=== PATIENT | female | born 1975 | race Caucasian/White ===

== ENCOUNTER → 2018-03-06 16:46 | Outpatient (CLI) | payer BC | END | disposition home or self-care (01) | LOC: D.MAMMO 14:45 | DX: Z12.31 Encounter for screening mammogram for malignant neoplasm of breast (principal) ==

== ENCOUNTER → 2018-04-14 19:38 | Outpatient (CLI) | payer BC | END | disposition home or self-care (01) | LOC: D.MAMMO 03-26 14:00 | DX: R92.8 Other abnormal and inconclusive findings on diagnostic imaging of breast (principal) ==

== ENCOUNTER 2019-07-03 10:18 | Inpatient (IN) | payer MEDICAID ==
[~2019-07-03] VITALS: Ht 162.6 cm; Wt 61.2 kg
[2019-07-03 11:01] LABS: BASOPHILS 0.1 % (0-2); EOSINOPHILS 0.1 % (0-7); HEMATOCRIT 34.2 % (36.0-48.0); HEMOGLOBIN 11.8 g/dL (12-16); IMMATURE GRANULOCYTES 2.1 % (0-5); MCH 31.1 pg (26.0-34.0); MCHC 34.5 g/dL (31.0-37.0); MEAN PLATELET VOLUME 10.6 fL (7.4-10.4); MONOCYTES 10.1 % (2-11); NEUTROPHILS 83.6 % (40-80); PLATELET COUNT 145 10x3/uL (130-400); RDW 13.5 % (11.5-14.5); WBC 12.6 10x3/uL (4.8-10.8)
[2019-07-03 11:04] LABS: BILIRUBIN NEGATIVE (NEGATIVE); GLUCOSE NEGATIVE (NEGATIVE); KETONE NEGATIVE (NEGATIVE); NITRITE NEGATIVE (NEGATIVE); UROBILINOGEN NORMAL (NORMAL)
[2019-07-03 11:10] LABS: ANION GAP 21.9 mmol/L (8-16); CALCIUM 7.6 mg/dL (8.5-10.1); CARBON DIOXIDE 17.7 mmol/L (21.0-32.0); CREATININE - SERUM 4.6 mg/dL (0.6-1.3); POTASSIUM - SERUM 3.6 mmol/L (3.5-5.1)
[2019-07-03 11:11] LABS: BACTERIA MANY /hpf (NEGATIVE); EPITHELIAL CELLS 0-5 /hpf (0-5); RED CELLS - URINE 0-5 /hpf (0-5); WHITE CELLS - URINE >50 /hpf (NEGATIVE)
[2019-07-03 11:15] LABS: ALBUMIN 2.5 g/dL (3.4-5.0); BILIRUBIN - TOTAL 0.43 mg/dL (0.2-1.3); PROTEIN - SERUM 7.4 g/dL (6.4-8.2)
[2019-07-03 12:09] VITALS: BP 125/66
[2019-07-03 12:11] LABS: C-REACTIVE PROTEIN 48.7 mg/dL (0.0-0.9)
[2019-07-03 13:40] LABS: UDS - AMPHET NEGATIVE QUAL (NEGATIVE); UDS - BARB NEGATIVE QUAL (NEGATIVE); UDS - BENZO NEGATIVE QUAL (NEGATIVE); UDS - COCAINE NEGATIVE QUAL (NEGATIVE); UDS - OPIATE NEGATIVE QUAL (NEGATIVE); UDS - PCP NEGATIVE QUAL (NEGATIVE); UDS - THC NEGATIVE QUAL (NEGATIVE)
--- NOTE | 2019-07-03 15:00 | NUR ---
PT ARRIVED TO ROOM VIA WHEELCHAIR, DROPLETE PRECAUTIONS IN PLACE. RECIEVED WATER AND BROTH PER REQUEST. DENIES NEEDS OR PAIN AT THIS TIME. CALL LIGHT WITHIN REQACH. PT ORIENTED TO ROOM. WILL CONTINUE TO MONITOR.
[2019-07-03 17:30] VITALS: BP 112/78; BMI 23.2
--- NOTE | 2019-07-03 19:59 | NUR ---
RECIEVED UP IN BED WITH EYES OPEN AND TV ON. ALERT AND ORIENTED X4. UP AD DONALD. IV TO RT AC WITH NS AT 125CC/HR. REMAINS IN DROPLET ISOLATION. AWAITING COVID TEST RESULTS. DENIES ANY NEEDS AT THIS TIME.
[2019-07-03 22:36] VITALS: BP 98/60
--- NOTE | 2019-07-04 05:38 | NUR ---
WHEN DRWING BLOOD FOR AM LABS NOTICED SHE HAD BANDANA LAID ACROSS HER WRIST AREA. WHEN SHE REMOVED IT I NOTICED 2 AREAS THAT LOOKED LIKE ABRASIONS THAT HAD SMALL AMOUNTS OF BLOOD COMMING FROME THEM.
[2019-07-04 05:48] LABS: BASOPHILS 0.1 % (0-2); EOSINOPHILS 0.2 % (0-7); HEMATOCRIT 27.5 % (36.0-48.0); IMMATURE GRANULOCYTES 1.8 % (0-5); LYMPHOCYTES 9.2 % (15-50); MCHC 33.1 g/dL (31.0-37.0); MCV 90.8 fL (80.0-100.0); MEAN PLATELET VOLUME 10.3 fL (7.4-10.4); MONOCYTES 16.3 % (2-11); NEUTROPHILS 72.4 % (40-80); PLATELET COUNT 163 10x3/uL (130-400)
[2019-07-04 05:49] LABS: HEMOGLOBIN 9.1 g/dL (12-16); RBC 3.03 10x6/uL (4.00-5.40)
[2019-07-04 06:11] LABS: CALCIUM 7.1 mg/dL (8.5-10.1); CARBON DIOXIDE 17.2 mmol/L (21.0-32.0); CREATININE - SERUM 3.6 mg/dL (0.6-1.3); POTASSIUM - SERUM 3.2 mmol/L (3.5-5.1)
--- NOTE | 2019-07-04 08:00 | NUR ---
PT SITTING UP IN BED, RR EVEN AND UNLABORED. STATES PAIN IN ABDOMEN 09/16. MORPHINE RECEIVED PER ORDER. HAT PLACED IN TOILET TO RECORD ACCURATE OUTPUT. ASSESSMENT COMPLETE. ABDOMEN DISTENDED AND TENDER TO LIGHT PALPATION. CALL LIGHT WITHIN REACH. BED IN LOWEST POSITION. WILL CONTINUE TO MONITOR.
[2019-07-04 08:17] VITALS: BP 109/72
--- NOTE | 2019-07-04 14:46 | NUR ---
I have reviewed this patient and I concur with the Shift Assessment completed by the Licensed Practical Nurse today this shift.
[2019-07-04 18:12] VITALS: BP 122/78
--- NOTE | 2019-07-04 18:17 | NUR ---
PULSE 122; ROWENA 102.8. CONTACTED FERN GATHERER TO ASK ABOUT CALLING CODE SEPSIS. SHE THEN CONTACTED ICU RAPID NURSE AND THEY BOTH AGREED TO INCREASE FLUIDS TO 150MLS/HR. PT IS ALREADY ON LEVAQUIN SO BLOOD CULTURES WOULD BE INNACURATE. COLD WASH CLOTH ON PT FOREHEAD, TEMP IN ROOM TURNED DOWN, BLANKET REMOVED FROM PT. TYLENOL RECEIVED PER ORDER. WILL PUT HEART MONITOR ON PT AND CTM.
--- NOTE | 2019-07-04 19:51 | NUR ---
RECEIVED SITTING UP ON BED FACING HEAD BOARD. ALERT AND ORIENTED X4. UP AD DONALD TO B/R. DENIES ANY BM AT THIS TIME. EDUCATED ON NEED TO DRINK WATER AND TAKE HER TIME WHEN SHE FEELS THE NEED TO DEFICATE. VERBAL UNDERSTANDING GIVEN. IV TO RT AC WITH NS AT 150CC/HR. TELEMETRY IN PLACE. REPORTED MAG CITRATE GIVEN TODAY BY OFF GOING. DENIES ANY NEEDS.
[2019-07-04 20:53] VITALS: BP 103/67
--- NOTE | 2019-07-05 00:23 | NUR ---
REQUESTED MORPHINE FOR ABDOMINAL PAIN. SAID SHE HAS HAD 3 BM'S AND FEELS BETTER.
[2019-07-05 06:10] VITALS: BP 148/88
[2019-07-05 06:25] LABS: BASOPHILS 0.2 % (0-2); EOSINOPHILS 0.3 % (0-7); IMMATURE GRANULOCYTES 5.2 % (0-5); LYMPHOCYTES 10.2 % (15-50); MCH 30.6 pg (26.0-34.0); MCHC 33.3 g/dL (31.0-37.0); MCV 91.7 fL (80.0-100.0); MEAN PLATELET VOLUME 9.8 fL (7.4-10.4); MONOCYTES 14.4 % (2-11); NEUTROPHILS 69.7 % (40-80); RDW 14.8 % (11.5-14.5)
[2019-07-05 06:26] LABS: PLATELET COUNT 206 10x3/uL (130-400)
[2019-07-05 06:34] LABS: ANION GAP 18.4 mmol/L (8-16); CALCIUM 8.1 mg/dL (8.5-10.1); CARBON DIOXIDE 16.4 mmol/L (21.0-32.0); CREATININE - SERUM 2.3 mg/dL (0.6-1.3); POTASSIUM - SERUM 4.8 mmol/L (3.5-5.1)
[2019-07-05 08:00] VITALS: BP 116/88
--- NOTE | 2019-07-05 08:17 | NUR ---
PT RECEIVED AWAKE AND ALERT. BREAKFAST TAKEN TO ROOM. STATES 5-6 LOOSE BMS LAST NIGHT AND BOTTOM IS RAW. ASKING FOR POWDER. TOLERATING LIQUID DIET, TRYING TO TAKE IN ORAL TO REPLACE LOST FLUIDS. SLIGHT TEMP THIS MORNING, 99.0 AT PRESENT POST TYLENOL DOSE.
--- NOTE | 2019-07-05 12:48 | NUR ---
I CALLED THE [facility] FOR COVID-19 TEST RESULTS PER LA NENA. THEY ARE SUPPOSE TO FAX RESULTS TO US.
--- NOTE | 2019-07-05 12:55 | NUR ---
RESULTS FROM [facility] FAXED TO [facility] AND SCANNED INTO CHART. I TOLD MASOUD HERMAN CHARGE OF THE RESULTS.
[2019-07-05 13:43] LABS: CKMB 0.7 U/L (0.0-3.6); CREATINE KINASE 19 UL (21-215)
[2019-07-05 13:47] LABS: TROPONIN-I < 0.017 ng/mL (0.000-0.060)
[2019-07-05 13:57] LABS: C-REACTIVE PROTEIN 24.4 mg/dL (0.0-0.9)
[2019-07-05 14:21] LABS: ERYTHROCYTE SEDIMENTATION RATE 118 mm/hr (0-20)
[2019-07-05 14:22] VITALS: BP 123/73
--- NOTE | 2019-07-05 16:17 | NUR ---
SPOKE WITH DR. MCGRATH AND HE STATES TO ORDER PT A NICOTINE PATCH.
--- NOTE | 2019-07-05 18:39 | NUR ---
PAGEDes DESAI VOISE TO NOTIFY HIM OF CONSULT.
--- NOTE | 2019-07-05 19:30 | NUR ---
PT IN BED, AAO X 3, RESP EVEN AND UNLABORED, NO DISTRESS NOTED, CL IN REACH, SR UP X 2.
[2019-07-05 19:32] LABS: CKMB 0.6 U/L (0.0-3.6); CREATINE KINASE 22 UL (21-215); TROPONIN-I < 0.017 ng/mL (0.000-0.060)
[2019-07-05 20:00] VITALS: BP 137/77
[2019-07-06 01:12] VITALS: BP 150/88
[2019-07-06 01:37] LABS: CKMB 0.2 U/L (0.0-3.6); CREATINE KINASE 24 UL (21-215); TROPONIN-I < 0.017 ng/mL (0.000-0.060)
--- NOTE | 2019-07-06 04:00 | NUR ---
I have reviewed this patient and I concur with the Shift Assessment completed by the Licensed Practical Nurse today this shift.
[2019-07-06 04:05] VITALS: BP 130/76
[2019-07-06 06:13] LABS: BASOPHILS 0.2 % (0-2); EOSINOPHILS 0.8 % (0-7); HEMATOCRIT 26.4 % (36.0-48.0); IMMATURE GRANULOCYTES 6.3 % (0-5); LYMPHOCYTES 10.9 % (15-50); MCH 30.3 pg (26.0-34.0); MCHC 34.1 g/dL (31.0-37.0); MEAN PLATELET VOLUME 9.3 fL (7.4-10.4); MONOCYTES 13.6 % (2-11); NEUTROPHILS 68.2 % (40-80); PLATELET COUNT 194 10x3/uL (130-400); RBC 2.97 10x6/uL (4.00-5.40); RDW 14.9 % (11.5-14.5); WBC 13.2 10x3/uL (4.8-10.8)
[2019-07-06 06:16] LABS: ANION GAP 16.6 mmol/L (8-16); CALCIUM 7.6 mg/dL (8.5-10.1); CARBON DIOXIDE 13.7 mmol/L (21.0-32.0); CREATININE - SERUM 1.4 mg/dL (0.6-1.3); POTASSIUM - SERUM 3.3 mmol/L (3.5-5.1)
[2019-07-06 06:35] LABS: MCV 88.9 fL (80.0-100.0)
--- NOTE | 2019-07-06 07:00 | NUR ---
RECEIVED PT FROM SWITCH FOREMAN.
[2019-07-06 07:53] VITALS: BP 131/82
--- NOTE | 2019-07-06 08:57 | NUR ---
ADMINISTERED PRN MORPHINE AND ZOFRAN AT THIS TIME. TOLERATED WELL. PT IS RESTING COMFORTABLY IN BED. DENIES ANY NEEDS AT THIS TIME. WILL CONTINUE TO MONITOR.
--- NOTE | 2019-07-06 11:25 | NUR ---
I have reviewed this patient and I concur with the Shift Assessment completed by the Licensed Practical Nurse today this shift.
[2019-07-06 11:28] VITALS: BP 133/84
[2019-07-06 13:01] VITALS: Ht 162.6 cm; Wt 61.2 kg
--- NOTE | 2019-07-06 13:36 | NUR ---
HUNG IV ANTIBIOTICS, TOLERATING WELL. ADMINISTERED PRN TYLENOL FOR PAIN LEVEL OF 6/10. PT IS RESTING COMFORTABLY IN BED. INQUIRED ABOUT POSSIBLE DC, NO NOTE INDICATING DISCHARGE TODAY. PT IS GOING TO SPEAK WIHT PULMONOLOGY WHEN THEY ROUND. DENIES ANY OTHER NEEDS AT THIS TIME. WILL CONTINUE TO MONITOR.
--- NOTE | 2019-07-06 14:51 | NUR ---
HUNG IV ANTIBIOTICS AND NEW NS @ 125. PT IS RESTING IN BED, DENIES ANY NEEDS AT THIS TIME. BED IN LOWEST POSITION, BED RAILS X2, CALL LIGHT WITHIN REACH. WILL CONTINUE TO MONITOR.
--- NOTE | 2019-07-06 17:11 | MORECARE ---
CASE MANAGEMENT DISCHARGE SUMMARY PATIENT: LALITO WHITLOCK UNIT: [id number] ADM DATE: 07/03/19 AGE: 44 : [birth year] SEX: F ROOM/BED: D.2137 AUTHOR: JENNY HELTON PHYSICIAN: REFERRING PHYSICIAN: LYNETTE BILLINGSLEY MD DATE OF SERVICE: 07/06/19 Discharge Plan Patient Name: LALITO WHITLOCK Facility: [facility]:[place] : 1975 Planned Disposition: Home Anticipated Discharge Date: Discharge Date: Expected LOS: Initial Reviewer: [email or web address] Initial Review Date: 07/06/2019 Generated: 07/06/19 6:11 pm DCPIA - Discharge Planning Initial Assessment Updated by [email or web address]: Nila Gregg on 07/06/19 5:08 pm * Is the patient Alert and Oriented? Yes * How many steps to enter\exit or inside your home? * PCP None * Pharmacy [facility] * Preadmission Environment Home with Family * ADLs Independent * Equipment None * List name and contact numbers for known caregivers / representatives who currently or will assist patient after discharge: Jaycob Wellington, ex, * Verbal permission to speak to the caregivers and representatives has been obtained from the patient. No * Community resources currently utilized None * Additional services required to return to the preadmission environment? No * Can the patient safely return to the preadmission environment? Yes * Has this patient been hospitalized within the prior 30 days at any hospital? No Patient Name: LALITO WHITLOCK Page 76828 at 1711 All edits/amendments must be made on the electronic document DICTATION DATE: 07/06/191710 TRUCK DESPATCHER: KATIANA 07/06/191710 RPT#: [id number] DC DATE: STATUS: ADM IN [facility] [address] [place] [address] END OF REPORT
--- NOTE | 2019-07-06 17:19 | MORECARE ---
CASE MANAGEMENT DISCHARGE SUMMARY PATIENT: LALITO WHITLOCK UNIT: [id number] ADM DATE: 07/03/19 AGE: 44 : 73 SEX: F ROOM/BED: D.2134 AUTHOR: DANIE,DOC PHYSICIAN: REFERRING PHYSICIAN: LYNETTE BILLINGSLEY MD DATE OF SERVICE: 07/06/19 Discharge Plan Patient Name: LALITO WHITLOCK Facility: [facility]:[place] : 1975 Planned Disposition: Home Anticipated Discharge Date: Discharge Date: Expected LOS: Initial Reviewer: [email or web address] Initial Review Date: 07/06/2019 Generated: 07/06/19 6:18 pm Comments DCP- Discharge Planning Updated by [email or web address]: Nila Gregg on 07/06/19 4:[address] Patient Name: LALITO WHITLOCK Admission Status: ER Accout number: [id number] Admission Date: 07-03-2019 : 1975 Admission Diagnosis:URINARY TRACT INFECTION, SITE NOT SPECIFIED Attending: LYNETTE BILLINGSLEY Current LOS: 3 Anticipated DC Date: Planned Disposition: Home Primary Insurance: MEDICAID [place] Discharge Planning Comments: CM met with patient about discharge planning / needs. Patent states she lives at home with her 15 yo son and 16 yo daughter. States she feels home environment is safe. States her ex, Jaycob Wellington, will drive her home upon hospital discharge. Denies need for home health or other community resource needs at this time. CM will continue to follow and assist as needed with discharge planning / needs. Core Composer Feeder: Nila Gregg DCPIA - Discharge Planning Initial Assessment Updated by [email or web address]: Nila Gregg on 07/06/19 5:08 pm * Is the patient Alert and Oriented? Yes * How many steps to enter\exit or inside your home? * PCP None * Pharmacy [facility] on [address] * Preadmission Environment Home with Family * ADLs Independent * Equipment None * List name and contact numbers for known caregivers / representatives who currently or will assist patient after discharge: Jaycob Wellington, ex, * Verbal permission to speak to the caregivers and representatives has been obtained from the patient. No * Community resources currently utilized None * Additional services required to return to the preadmission environment? No * Can the patient safely return to the preadmission environment? Yes * Has this patient been hospitalized within the prior 30 days at any hospital? No Last DP export: 07/06/19 4:11 p Patient Name: LALITO WHITLOCK Page 55180 at 1715 All edits/amendments must be made on the electronic document DICTATION DATE: 07/06/191717 VEHICLE CHECK IN CLERK: KATIANA 07/06/191717 RPT#: [id number] DC DATE: STATUS: ADM IN [facility] [address] [place] [address] END OF REPORT
--- NOTE | 2019-07-06 17:58 | NUR ---
PT IN BED, RESTLESS. PT IS UPSET SHE IS NOT BEING DISCHARGED TODAY. REQUESTS AT LEAST SOME MEDICATION FOR ANXIETY. PAGED NEREIDA LLOYD. WILL CONTINUE TO MONITOR.
--- NOTE | 2019-07-06 19:08 | NUR ---
PT IS ALERT IN BED LOW AND LOCKED AND CALL LIGHT IS IN REACH PT REQUESTING MED FOR ANXIETY Lesia VERMA
[2019-07-06 22:16] VITALS: BP 140/78
[2019-07-07 05:29] VITALS: BP 137/80
[2019-07-07 05:52] LABS: HEMATOCRIT 27.2 % (36.0-48.0); HEMOGLOBIN 9.1 g/dL (12-16); MCH 29.9 pg (26.0-34.0); MCHC 33.5 g/dL (31.0-37.0); MCV 89.5 fL (80.0-100.0); MEAN PLATELET VOLUME 9.8 fL (7.4-10.4); RBC 3.04 10x6/uL (4.00-5.40); WBC 14.5 10x3/uL (4.8-10.8)
[2019-07-07 06:32] LABS: ANION GAP 16.3 mmol/L (8-16); CALCIUM 7.7 mg/dL (8.5-10.1); MAGNESIUM - SERUM 1.3 mg/dL (1.8-2.4); PHOSPHOROUS 3.3 mg/dL (2.5-4.9); POTASSIUM - SERUM 3.3 mmol/L (3.5-5.1)
[2019-07-07 06:33] LABS: PLATELET COUNT 267 10x3/uL (130-400)
[2019-07-07 06:52] LABS: EOSINOPHILS 1 % (0-7); LYMPHOCYTES 10 % (15-50); MONOCYTES 4 % (2-11); NEUTROPHILS 85 % (40-80); PLATELET ESTIMATE NORMAL; TEAR DROP CELLS OCC
--- NOTE | 2019-07-07 07:15 | NUR ---
AM ROUNDS COMPLETED. BEDSIDE SHIFT REPORT DONE. INTRODUCED MYSELF TO PT PRIMARY RN FOR TODAYS SHIFT. PT IS A&O SITTING UP IN BED RESTING QUIETLY. SHIFT ASSESSMENT COMPLETED AND PT IS DOING MUCH BETTER AND REQUESTING TO PLEASE BE DISCHARGED TODAY. WILL REVIEW CHART AND ORDERS AND CPOC.
--- NOTE | 2019-07-07 08:34 | NUR ---
PT IN TEARS BEGGING TO BE DISCHARGED. REVIEWED PROGRESS NOTES AND IT APPEARS THE PLAN ANYWAYS. HOWEVER PT DID HAVE LOW POTASSIUM AND LOW MAG LEVELS THIS AM. I DID TREAT PER ELECTROLYTE PROTOCOL. WILL PAGE PRIMARY AND SEE ABOUT DISCHARGE PLANNING AND PT IS JUST VERY EMOTIONAL AND NEEDS TO GET HOME TO HER YOUNG CHILDREN. NO IMMEDIATE NEEDS AT THIS TIME. CL IN REACH, BED IN LOWEST, SIDE RAILS X2. WILL CPOC.
[2019-07-07 08:40] VITALS: BP 160/97
--- NOTE | 2019-07-07 09:09 | NUR ---
PTS R.AC PIV INFILTRATED. D/C WITH CATH TIP FULLY INTACT. NEW 22 GUAGE INSERTED TO R.FA X1 STICK. MAG INFUSING. WILL CPOC.
[2019-07-07 11:29] VITALS: BP 161/93
[2019-07-07] MEDS ORDERED: Nicoderm [PBKC] TRANSDERM (12:02)
[2019-07-07] MEDS ORDERED: TESSALON PERLE100 MG PO (12:02)
[2019-07-07] MEDS ORDERED: LEVOFLOXACIN500 MG PO (12:02)
[2019-07-07] MEDS ORDERED: MUCINEX600 MG PO (12:02)
[2019-07-07] MEDS ORDERED: PROTONIX40 MG PO (12:02)
[2019-07-07] MEDS ORDERED: FLAGYL500 MG PO (12:03)
--- NOTE | 2019-07-07 13:47 | NUR ---
D/C PTS R.FA PIV WITH CATHETER TIP FULLY INTACT. DISCHARGE TEACHING PROVIDED AND PAPERS SIGNED. PT VERBALIZED UNDERSTANDING AND DENIES ANY QUESTIONS OR CONCERNS. PT IS GETTING UP AND DRESSED AT THIS TIME AND CALLED HER FAMILY. NO CURRENT NEEDS.
--- NOTE | 2019-07-07 14:23 | MORECARE ---
CASE MANAGEMENT DISCHARGE SUMMARY PATIENT: LALITO WHITLOCK UNIT: [id number] ADM DATE: 07/03/19 AGE: 44 : 73 SEX: F ROOM/BED: D.2137 AUTHOR: DANIE,DOC PHYSICIAN: REFERRING PHYSICIAN: LYNETTE BILLINGSLEY MD DATE OF SERVICE: 07/07/19 Discharge Plan Patient Name: LALITO WHITLOCK Facility: [facility]:[place] : 1975 Planned Disposition: Home Anticipated Discharge Date: Discharge Date: Expected LOS: Initial Reviewer: [email or web address] Initial Review Date: 07/06/2019 Generated: 07/07/19 3:22 pm Comments DCP- Discharge Planning Updated by [email or web address]: Kalyn Stevenemma on 07/07/19 1:[address] Patient Name: LALITO WHITLOCK Encounter No: [id number] : 1975 Primary Insurance: MEDICAID [place] Anticipated DC Date: Planned Disposition: Home External Planned Provider: : DCP follow-up note: Patient and family in agreement with discharge plan. No changes to plan. I gave her a [employer] card to use for her prescriptions and told her how to look it up on the web site for cheaper prices. Denies other needs. Case management will follow and assist as needed. Kalyn Wade DCP- Discharge Planning Updated by [email or web address]: Nila Gregg on 07/06/19 4:[address] Patient Name: LALITO WHITLOCK Admission Status: ER Accout number: [id number] Admission Date: 07-03-2019 : 1975 Admission Diagnosis:URINARY TRACT INFECTION, SITE NOT SPECIFIED Attending: LYNETTE BILLINGSLEY Current LOS: 3 Anticipated DC Date: Planned Disposition: Home Primary Insurance: MEDICAID [place] Discharge Planning Comments: CM met with patient about discharge planning / needs. Patent states she lives at home with her 15 yo son and 16 yo daughter. States she feels home environment is safe. States her ex, Jaycob Wellington, will drive her home upon hospital discharge. Denies need for home health or other community resource needs at this time. CM will continue to follow and assist as needed with discharge planning / needs. Heading Repairer: Nila Gregg DCPIA - Discharge Planning Initial Assessment Updated by [email or web address]: Nila Gregg on 07/06/19 5:08 pm * Is the patient Alert and Oriented? Yes * How many steps to enter\exit or inside your home? * PCP None * Pharmacy [facility] on [address] * Preadmission Environment Home with Family * ADLs Independent * Equipment None * List name and contact numbers for known caregivers / representatives who currently or will assist patient after discharge: Jaycob Wellington, ex, * Verbal permission to speak to the caregivers and representatives has been obtained from the patient. No * Community resources currently utilized None * Additional services required to return to the preadmission environment? No * Can the patient safely return to the preadmission environment? Yes * Has this patient been hospitalized within the prior 30 days at any hospital? No Last DP export: 07/06/19 4:19 p Patient Name: LALITO WHITLOCK Page 39827 at 1423 All edits/amendments must be made on the electronic document DICTATION DATE: 07/07/191421 SLACK COOPER: KATIANA 07/07/19 142 RPT#: [id number] [place] DATE: STATUS: ADM IN [facility] [address] [place] [address] END OF REPORT
--- NOTE | 2019-07-08 07:19 | MORECARE ---
CASE MANAGEMENT DISCHARGE SUMMARY PATIENT: LALITO WHITLOCK UNIT: [id number] ADM DATE: 07/03/19 AGE: 44 : 73 SEX: F ROOM/BED: D.2131 AUTHOR: DANIE,DOC PHYSICIAN: REFERRING PHYSICIAN: LYNETTE BILLINGSLEY MD DATE OF SERVICE: 07/08/19 Discharge Plan Patient Name: LALITO WHITLOCK Facility: [facility]:[place] : 1975 Planned Disposition: Home Anticipated Discharge Date: Discharge Date: 07/07/2019 Expected LOS: 0 Initial Reviewer: [email or web address] Initial Review Date: 07/06/2019 Generated: 07/08/19 8:18 am Comments DCP- Discharge Planning Updated by [email or web address]: Kalyn Wade on 07/07/19 1:[address] Patient Name: LALITO WHITLOCK Encounter No: [id number] : 1975 Primary Insurance: MEDICAID [place] Anticipated DC Date: Planned Disposition: Home External Planned Provider: : DCP follow-up note: Patient and family in agreement with discharge plan. No changes to plan. I gave her a [employer] website card to use for her prescriptions and told her how to look it up on the web site for cheaper prices. Denies other needs. Case management will follow and assist as needed. Kalyn Stevenemma DCP- Discharge Planning Updated by [email or web address]: Nila Gregg on 07/06/19 4:[address] Patient Name: LALITO WHITLOCK Admission Status: ER Accout number: [id number] Admission Date: 07-03-2019 : 1975 Admission Diagnosis:URINARY TRACT INFECTION, SITE NOT SPECIFIED Attending: LYNETTE BILLINGSLEY Current LOS: 3 Anticipated DC Date: Planned Disposition: Home Primary Insurance: MEDICAID [place] Discharge Planning Comments: CM met with patient about discharge planning / needs. Patent states she lives at home with her 15 yo son and 16 yo daughter. States she feels home environment is safe. States her ex, Jaycob Wellington, will drive her home upon hospital discharge. Denies need for home health or other community resource needs at this time. CM will continue to follow and assist as needed with discharge planning / needs. Spring Coverer: Nila Gregg DCPIA - Discharge Planning Initial Assessment Updated by [email or web address]: Nila Gregg on 07/06/19 5:08 pm * Is the patient Alert and Oriented? Yes * How many steps to enter\exit or inside your home? * PCP None * Pharmacy [facility] on [address] * Preadmission Environment Home with Family * ADLs Independent * Equipment None * List name and contact numbers for known caregivers / representatives who currently or will assist patient after discharge: Jaycob Wellington, ex, * Verbal permission to speak to the caregivers and representatives has been obtained from the patient. No * Community resources currently utilized None * Additional services required to return to the preadmission environment? No * Can the patient safely return to the preadmission environment? Yes * Has this patient been hospitalized within the prior 30 days at any hospital? No Last DP export: 07/07/19 1:23 p Patient Name: LALITO WHITLOCK Page 52529 at 0719 All edits/amendments must be made on the electronic document DICTATION DATE: 07/08/19717 MITER CUTTER: KATIANA 07/08/19717 RPT#: [id number] DC DATE:07/07/19 STATUS: DIS IN [facility] [address] [place] [address] END OF REPORT
[2019-07-08 16:08] LABS: AEROBE ID Final report (())
== END 2019-07-07 15:05 | disposition home or self-care (01) | DRG 871 ==
LOC: D.ER 10:18 → D.M2 12:39
PROVIDERS: Emergency Medicine; Family Medicine; ADMIT Internal Medicine Nephrology; ATTEND Internal Medicine Nephrology
DX: A41.9 Sepsis, unspecified organism (principal); N17.0 Acute kidney failure with tubular necrosis; N39.0 Urinary tract infection, site not specified; E87.1 Hypo-osmolality and hyponatremia; D64.9 Anemia, unspecified; J44.9 Chronic obstructive pulmonary disease, unspecified; K21.9 Gastro-esophageal reflux disease without esophagitis; B96.20 Unspecified Escherichia coli [E. coli] as the cause of diseases classified elsewhere

== ENCOUNTER 2020-06-30 06:20 | Emergency (ER) | payer MEDICAID ==
[~2020-06-30] VITALS: Ht 162.6 cm; Wt 54.5 kg
[~2020-06-30 06:20] MED LIST: CLEOCIN HCL300 MG PO; DICLOFENAC SODI50 MG PO; FLAGYL500 MG PO; LEVOFLOXACIN500 MG PO; MUCINEX600 MG PO; Nicoderm [PBKC] TRANSDERM; PROTONIX40 MG PO; TESSALON PERLE100 MG PO
[2020-06-30 06:26] VITALS: BP 139/109; Ht 162.6 cm; Wt 54.5 kg
[2020-06-30] MEDS ORDERED: HYDROCODON-ACE1 EAC7 PO (07:13)
[2020-06-30] MEDS ORDERED: CEPHALEXIN500 M1 PO (07:13)
[2020-06-30] MEDS ORDERED: PERMETHRIN60 GM TOPICAL (07:13)
[2020-06-30] MEDS ORDERED: BACTRIM DS TAB1 EAC1 PO (07:13)
== END 2020-06-30 07:29 | disposition home or self-care (01) ==
LOC: D.ER 06:20
DX: B88.0 Other acariasis (principal); L02.512 Cutaneous abscess of left hand; L02.511 Cutaneous abscess of right hand